=== PATIENT | male | born 1965 | race Two or more races ===

== ENCOUNTER 2018-03-19 06:41 | Emergency (ER) | payer OTHER ==
[~2018-03-19] VITALS: Ht 175.3 cm; Wt 70.3 kg
[2018-03-19] MEDS ORDERED: FENOFIBRATE40 MG (07:14)
[2018-03-19] MEDS ORDERED: AVAPRO75 MG (07:14)
[2018-03-19] MEDS ORDERED: LIPITOR80 MG (07:14)
[2018-03-19] MEDS ORDERED: KETO10TA2 (07:15)
[2018-03-19] MEDS ORDERED: JANUVIA25 MG (07:15)
== END 2018-03-19 14:28 | disposition home or self-care (01) ==
LOC: ER 06:41
DX: N20.1 Calculus of ureter (principal)

== ENCOUNTER 2019-08-18 09:20 | Outpatient (CLI) | payer OTHER ==
[~2019-08-18 09:20] MED LIST: AVAPRO75 MG; FENOFIBRATE40 MG; JANUVIA25 MG; KETO10TA2; LIPITOR80 MG
== END 2019-08-18 09:28 | disposition home or self-care (01) ==
LOC: MAMO-SONO 09:20
PROVIDERS: ATTEND Internal Medicine Endocrinology, Diabetes & Metabolism
DX: K76.1 Chronic passive congestion of liver (principal)

== ENCOUNTER 2019-10-30 08:23 | Outpatient (CLI) | payer OTHER | END 2019-10-30 08:29 | disposition home or self-care (01) | LOC: SONOGRAMA 08:23 | PROVIDERS: ATTEND Urology | DX: N20.0 Calculus of kidney (principal) ==

== ENCOUNTER 2019-12-10 12:06 | Outpatient (CLI) | payer OTHER | END 2019-12-10 13:00 | disposition home or self-care (01) | LOC: OFIC 805 12:06 | PROVIDERS: ATTEND Otolaryngology Otology & Neurotology | DX: H90.3 Sensorineural hearing loss, bilateral (principal); H92.03 Otalgia, bilateral; H61.23 Impacted cerumen, bilateral ==

== ENCOUNTER 2020-06-09 13:03 | Outpatient (CLI) | payer OTHER | END 2020-06-09 13:48 | disposition home or self-care (01) | LOC: OFIC 805 13:03 | PROVIDERS: ATTEND Otolaryngology Otology & Neurotology | DX: H90.3 Sensorineural hearing loss, bilateral (principal); H61.23 Impacted cerumen, bilateral ==

== ENCOUNTER 2020-10-19 08:46 | Outpatient (CLI) | payer OTHER | END 2020-10-19 08:55 | disposition home or self-care (01) | LOC: SONOGRAMA 08:46 → MAMO-SONO 09:15 | PROVIDERS: ATTEND Internal Medicine Gastroenterology | DX: K82.8 Other specified diseases of gallbladder (principal); K30 Functional dyspepsia ==

== ENCOUNTER 2020-10-22 13:01 | Outpatient (CLI) | payer OTHER | END 2020-10-22 13:16 | disposition home or self-care (01) | LOC: SONOGRAMA 13:01 | DX: N28.89 Other specified disorders of kidney and ureter (principal); Z12.5 Encounter for screening for malignant neoplasm of prostate ==

== ENCOUNTER 2022-03-12 16:36 | Emergency (ER) | payer OTHER ==
[~2022-03-12] VITALS: Ht 175.3 cm; Wt 65.8 kg
[2022-03-12] MEDS ORDERED: ATACAND4 MG PO (17:05)
== END 2022-03-12 18:51 | disposition home or self-care (01) ==
LOC: ER 16:36
DX: H10.31 Unspecified acute conjunctivitis, right eye (principal)

== ENCOUNTER 2023-04-25 07:25 | Outpatient (CLI) | payer OTHER ==
[~2023-04-25 07:25] MED LIST changes: +ATACAND4 MG PO
== END 2023-04-25 07:34 | disposition home or self-care (01) ==
LOC: SONOGRAMA 07:25
PROVIDERS: ATTEND Internal Medicine Gastroenterology
DX: K52.9 Noninfective gastroenteritis and colitis, unspecified (principal); K82.4 Cholesterolosis of gallbladder

== ENCOUNTER 2023-11-09 07:31 | Outpatient (CLI) | payer OTHER | END 2023-11-09 07:42 | disposition home or self-care (01) | LOC: SONOGRAMA 07:31 | PROVIDERS: ATTEND Internal Medicine Gastroenterology | DX: K82.4 Cholesterolosis of gallbladder (principal) ==

== ENCOUNTER 2023-12-02 12:03 | Emergency (ER) | payer OTHER ==
[~2023-12-02] VITALS: Ht 175.3 cm; Wt 69.9 kg
[2023-12-02] MEDS ORDERED: KETOROLAC TROMETHAMINE 60 MG VIAL IM ONE (12:30)
[2023-12-02] MEDS ORDERED: FAMOtidine 10 MG/ML (4ML VIAL) IV ONE (12:30)
[2023-12-02] MEDS ORDERED: TAMSULOSIN HCL 0.4 MG CAP PO ONE (12:30)
[2023-12-02] MEDS ORDERED: 0.9 % SODIUM CHLORIDE 250 ML IV ONE (12:30)
[2023-12-02] MEDS ORDERED: CEFTRIAXONE SODIUM 1,000 MG VIAL IV ONE (12:30)
[2023-12-02 13:18] LABS: HEMATOCRIT 39.6 % (39.0-48.0); HEMOGLOBIN 13.9 g/dL (13-16.00); MEAN CELL VOLUME 91.5 fL (80.0-100.00); MEAN CORPUSCULAR HEMOGLOBIN 32.1 pg (27.00-32.0); MEAN CORPUSCULAR HGB CONC 35.1 g/dl (32.0-36.0); PLATELET COUNT 258 K/uL (150-450); RED BLOOD COUNT 4.33 M/uL (4.00-6.00)
[2023-12-02 14:23] LABS: ALBUMIN 3.7 gm/dL (3.4-5.0); BILIRUBIN TOTAL 0.43 mg/dL (0.3-1.2); CALCIUM 9.5 mg/dL (8.5-10.1); CREATININE SERUM 1.1 mg/dL (0.70-1.30); GFR 68.28; GLOBULINA 3.5 G/DL (2.4-3.5); POTASSIUM 3.83 mEq/L (3.5-5.1); TOTAL PROTEIN 7.2 gm/dL (6.4-8.2)
[2023-12-02 14:38] LABS: PH,URINE 7.5 (5.0-8.0); URINE APPEARANCE Cloudy; URINE BILIRRUBIN Negative (NEGATIVE); URINE BLOOD Negative; URINE COLOR Yellow; URINE KETONE Trace (NEGATIVE); URINE LEUKOCYTE Negative; URINE NITRATE Negative; URINE PROTEIN Trace (NEGATIVE)
[2023-12-02 14:42] LABS: URINE EPITHELIAL CELLS 4.1 uL (0.0-38.8); URINE RBC 19.3 uL (0.0-20.8); URINE WBC 5.7 uL (0.0-23.2)
[2023-12-02 14:48] LABS: URINE CAST 1.37 uL (0.0-1.40); URINE GLUCOSE 250 MG/DL (NEGATIVE)
[2023-12-02] MEDS ORDERED: ZOFRAN8 MG PO (15:14)
[2023-12-02] MEDS ORDERED: KETO10TA2 PO (15:14)
[2023-12-02] MEDS ORDERED: TAMS0.4C PO (15:14)
[2023-12-02] MEDS ORDERED: BACTRIM DS TAB1 EACH PO (15:14)
[2023-12-02] MEDS ORDERED: PEPCID AC20 MG PO (15:14)
== END 2023-12-02 15:22 | disposition home or self-care (01) ==
LOC: ER 12:04
PROVIDERS: General Practice
DX: R10.2 Pelvic and perineal pain (principal)

== ENCOUNTER 2024-12-02 11:08 | Outpatient (CLI) | payer OTHER ==
[~2024-12-02 11:08] MED LIST changes: +BACTRIM DS TAB1 EACH PO; +KETO10TA2 PO; +PEPCID AC20 MG PO; +TAMS0.4C PO; +ZOFRAN8 MG PO
== END 2024-12-03 12:06 | disposition home or self-care (01) ==
LOC: SONOGRAMA 11:08
DX: K30 Functional dyspepsia (principal)